=== PATIENT | male | born 1955 | race Caucasian/White ===

== ENCOUNTER → 2020-04-25 | Outpatient (CLI) | payer MEDICARE ==
[2020-04-25 09:58] LABS: HCT 44.6 % (39.0-53.0); HGB 14.8 gm/dL (13.0-17.5); MCH 32.1 pg (25.0-35.0); MCHC 33.2 g/dL (31.0-37.0); MCV 96.6 fL (80.0-100.0); Mean Platelet Volume 7.7; Platelet Count 206 k/uL (150-450); RBC 4.61 m/uL (4.30-5.90); RDW 13.6 % (11.5-15.5); WBC 8.1 k/uL (3.8-10.6)
[2020-04-25 16:09] LABS: African American GFR (CKD) 103.5 (60.0-200.0); Albumin 4.2 g/dL (3.80-4.90); Albumin/Globulin Ratio 1.75 (1.60-3.17); Anion Gap 7.1 mmol/L (4.00-12.00); BUN/Creat Ratio 18.89 Ratio (12.00-20.00); Bilirubin, Conjugated 0.2 mg/dL (0.20-0.40); Bilirubin,Unconjugated 0.4 mg/dL; C Reactive Protein, High Sens 5.23 mg/L (0.000-3.000); Calcium 9.1 mg/dL (8.7-10.3); Carbon Dioxide 25.9 mmol/L (21.6-31.8); Chol/HDL Ratio 2.27; Globulin 2.4 g/dL (1.6-3.3); LDL Cholesterol,Calculated 67.8 mg/dL (0.0-131.0); Non-African American GFR(CKD) 89.3 (60.0-200.0); Potassium 4.5 mmol/L (3.5-5.5); Total Bilirubin 0.6 mg/dL (0.3-1.2); Total Protein 6.6 g/dL (6.2-8.2); VLDL Calculation 11.2 mg/dL (5.00-40.00)
== END | disposition home or self-care (01) ==
LOC: LABWHC1 08:22
PROVIDERS: ATTEND Internal Medicine Cardiovascular Disease
DX: I11.9 Hypertensive heart disease without heart failure (principal); I25.5 Ischemic cardiomyopathy; E78.2 Mixed hyperlipidemia; I25.810 Atherosclerosis of coronary artery bypass graft(s) without angina pectoris; R97.20 Elevated prostate specific antigen [PSA]
CPT/HCPCS: 36415; 80053; 80061; 82248; 84153; 84443; 85027; 86141